=== PATIENT | male | born 1980 | race Asian ===

== ENCOUNTER 2017-10-09 18:32 | Inpatient (IN) | payer MEDICARE, MEDICAID ==
[~2017-10-09] VITALS: Ht 167.6 cm; Wt 73.5 kg
[~2017-10-09 18:32] MED LIST: HEPARIN SODIUM,PORCINE 1,000 UNITS/ML VIAL IVP ONE; RISP3 PO
[2017-10-09 18:59] LABS: BASOPHILS % (AUTO) 1.1 % (0.0-2.0); EOSINOPHILS % (AUTO) 4.5 % (1.0-6.0); HEMATOCRIT 32.7 % (41-53); HEMOGLOBIN 11.2 g/dL (13.5-17.5); LYMPHOCYTES # (AUTO) 2.2 K/uL (1.0-4.8); LYMPHOCYTES % (AUTO) 21.8 % (22.0-44.0); MEAN CORPUSCULAR HEMOGLOBIN 32.1 pg (26.0-34.0); MEAN CORPUSCULAR HGB CONC 34.2 G/dL (31.0-37.0); MEAN CORPUSCULAR VOLUME 94 fL (80-100); MONOCYTES # (AUTO) 1.1 K/uL (0.1-1.0); MONOCYTES % (AUTO) 10.8 % (2.0-9.0); NEUTROPHILS # (AUTO) 6.1 K/uL (1.8-7.7); NEUTROPHILS % (AUTO) 61.8 % (40.0-70.0); PLATELET COUNT (AUTO) 231 K/uL (150-450); RED BLOOD CELL COUNT(AUTO) 3.48 MIL/uL (4.50-5.90); RED CELL DISTRIBUTION WIDTH 16.3 % (11.5-14.5)
[2017-10-09] MEDS ORDERED: QUET300T2 PO (19:02)
[2017-10-09 19:14] LABS: ALBUMIN 2.3 g/dL (3.4-5.0); BILIRUBIN,TOTAL 0.2 mg/dL (0.1-1.0); CALCIUM, TOTAL 7.7 mg/dL (8.8-10.5); CREATININE 14.22 mg/dL (0.60-1.30); TOTAL PROTEIN, SERUM 5.9 g/dL (6.4-8.2)
[2017-10-09 19:30] LABS: POTASSIUM 7.2 mmol/L (3.5-5.1)
[2017-10-09] MEDS ORDERED: NITROGLYCERIN 2% (1 GM=INCH) PACKET TP ONE (19:30)
[2017-10-09] MEDS ORDERED: 0.9% SODIUM CHLORIDE 5 ML NEB SOLUTION NEB ONE (19:43)
[2017-10-09] MEDS ORDERED: INSULIN REGULAR, HUMAN 100 UNITS/ML IVP ONE (19:45)
[2017-10-09] MEDS ORDERED: DEXTROSE 50%-WATER 25 GM/50 ML SYRINGE IVP ONE (19:45)
[2017-10-09] MEDS ORDERED: SODIUM CHLORIDE 0.9% 100 ML ONE (19:45)
[2017-10-09] MEDS ORDERED: LORazepam 2 MG/ML VIAL IVP ONE (19:45)
[2017-10-09] MEDS ORDERED: SODIUM POLYSTYRENE SULFONATE 15 GM/60 ML SUSPENSION BOTTLE PO ONE (19:45)
[2017-10-09] MEDS ORDERED: SODIUM BICARBONATE [ADULT] 8.4% 50 MEQ/50 ML SYRINGE IVP ONE (19:45)
[2017-10-09] MEDS ORDERED: CALCIUM GLUCONATE 100 MG/ML 10 ML IVP ONE (19:45)
[2017-10-09] MEDS ORDERED: ALBUTEROL SULFATE 2.5 MG/0.5 ML NEB SOLUTION NEB ONE (19:45)
[2017-10-09 20:05] LABS: INR 0.9 (0.9-1.1); PROTHROMBIN TIME 9.4 SEC (9.4-11.6)
[2017-10-09] MEDS ORDERED: ACETAMINOPHEN 325 MG TABLET PO PRN (20:15)
[2017-10-09] MEDS ORDERED: ONDANSETRON HCL 4 MG/2 ML VIAL IVP PRN ×2 (20:15→23:00)
[2017-10-09] MEDS ORDERED: 0.9% SODIUM CHLORIDE 10 ML SYRINGE IVP PRN ×2 (20:15→23:00)
[2017-10-09] MEDS ORDERED: NITROGLYCERIN 0.4 MG SUBLINGUAL TABLET #25 SL ONE ×2 (20:41→20:45)
[2017-10-09 21:06] VITALS: BP 157/110
[2017-10-09 21:10] LABS: APPEARANCE,URINE CLEAR (CLEAR); BILIRUBIN,URINE NEGATIVE (NEGATIVE); GLUCOSE, URINE (UA) 100 mg/dL (NEGATIVE); KETONES,URINE NEGATIVE (NEGATIVE); LEUKOCYTE ESTERASE ,URINE NEGATIVE (NEGATIVE); NITRATE,URINE NEGATIVE (NEGATIVE); OCCULT BLOOD,URINE LARGE (NEGATIVE); PH,URINE 7.5 (5.0-8.0); PROTEIN,URINE SEE CONFIRM (NEGATIVE); UROBILINOGEN,URINE 0.2 mg/dL (<=1.0)
[2017-10-09 21:11] LABS: AMPHET/METH SCREEN,URINE POSITIVE (NEGATIVE); BARBITURATE SCREEN, URINE NEGATIVE (NEGATIVE); BENZODIAZEPINES SCREEN,URINE NEGATIVE (NEGATIVE); CANNABINOID SCREEN,URINE NEGATIVE (NEGATIVE); COCAINE SCREEN,URINE NEGATIVE (NEGATIVE); METHADONE SCREEN, URINE NEGATIVE (NEGATIVE); OPIATE SCREEN,URINE NEGATIVE (NEGATIVE); PHENCYCLIDINE SCREEN,URINE NEGATIVE (NEGATIVE)
[2017-10-09] MEDS ORDERED: SODIUM CHLORIDE 0.9% 2,000 ML IV ONE (21:20)
[2017-10-09 21:28] LABS: SULFOSALICYLIC ACID,URINE 4+ (Negative)
[2017-10-09 21:29] LABS: RBC,URINE 26-50 /HPF (0-2)
[2017-10-09 21:30] LABS: BACTERIA,URINE Few /HPF (None Seen); SQUAMOUS EPITHELIAL CELL,UR Few /LPF (None Seen)
[2017-10-09] MEDS ORDERED: ZOLPIDEM TARTRATE 5 MG TABLET PO PRN (23:00)
[2017-10-10] MEDS ORDERED: HEPARIN SODIUM,PORCINE 5,000 UNITS/ML VIAL SQ SCH
[2017-10-10] MEDS: DOCUSATE SODIUM 100 MG CAPSULE PO SCH ×2 (01:07→09:00)
[2017-10-10] MEDS: RisperiDONE 3 MG TABLET PO SCH ×2 (01:08→09:00)
[2017-10-10] MEDS ORDERED: MANNITOL 25%-12.5 GM/50 ML VIAL IVP PRN (01:15)
[2017-10-10] MEDS ORDERED: HEPARIN SODIUM,PORCINE 1,000 UNITS/ML VIAL IVP ONE ×2 (01:15)
[2017-10-10] MEDS: HEPARIN SODIUM,PORCINE 5,000 UNITS/ML VIAL SQ SCH ×2 (02:02→08:00)
[2017-10-10 06:05] VITALS: BP 146/92
[2017-10-10 06:57] VITALS: BP 154/92
[2017-10-10 07:01] LABS: BASOPHILS % (AUTO) 0.9 % (0.0-2.0); EOSINOPHILS % (AUTO) 3.7 % (1.0-6.0); HEMATOCRIT 28.8 % (41-53); HEMOGLOBIN 10.1 g/dL (13.5-17.5); LYMPHOCYTES # (AUTO) 1.5 K/uL (1.0-4.8); MEAN CORPUSCULAR HEMOGLOBIN 32.5 pg (26.0-34.0); MEAN CORPUSCULAR HGB CONC 34.9 G/dL (31.0-37.0); MEAN CORPUSCULAR VOLUME 93 fL (80-100); MONOCYTES # (AUTO) 0.9 K/uL (0.1-1.0); MONOCYTES % (AUTO) 10.6 % (2.0-9.0); NEUTROPHILS # (AUTO) 5.4 K/uL (1.8-7.7); NEUTROPHILS % (AUTO) 66.8 % (40.0-70.0); PLATELET COUNT (AUTO) 201 K/uL (150-450); RED CELL DISTRIBUTION WIDTH 16.1 % (11.5-14.5)
[2017-10-10 07:24] LABS: BILIRUBIN,TOTAL 0.3 mg/dL (0.1-1.0); CALCIUM, TOTAL 7.6 mg/dL (8.8-10.5); CREATININE 7.98 mg/dL (0.60-1.30); MAGNESIUM 1.5 mg/dL (1.80-2.40); POTASSIUM 4.2 mmol/L (3.5-5.1); TOTAL PROTEIN, SERUM 5.3 g/dL (6.4-8.2)
[2017-10-10] MEDS ORDERED: PANTOPRAZOLE SODIUM 40 MG/VIAL IVP SCH (09:00)
[2017-10-10] MEDS ORDERED: QUEtiapine FUMARATE 300 MG TABLET PO SCH (09:00)
== END 2017-10-10 09:50 | disposition left against medical advice (07) | DRG 640 ==
LOC: EMS 18:33 → 5S 20:06
PROVIDERS: ADMIT Internal Medicine; ATTEND Internal Medicine
PROC: 5A1D70Z Performance of Urinary Filtration, Intermittent, Less than 6 Hours Per Day (ICD-10-PCS; principal; 2017-10-09)
DX: E87.5 Hyperkalemia (principal); N18.6 End stage renal disease; N17.9 Acute kidney failure, unspecified; I12.0 Hypertensive chronic kidney disease with stage 5 chronic kidney disease or end stage renal disease; F20.9 Schizophrenia, unspecified; D64.9 Anemia, unspecified; E78.00 Pure hypercholesterolemia, unspecified; E78.5 Hyperlipidemia, unspecified; E87.70 Fluid overload, unspecified; F17.210 Nicotine dependence, cigarettes, uncomplicated; J44.9 Chronic obstructive pulmonary disease, unspecified; K21.9 Gastro-esophageal reflux disease without esophagitis; Z91.19 Patient's noncompliance with other medical treatment and regimen; Z99.2 Dependence on renal dialysis; Z79.899 Other long term (current) drug therapy
CPT/HCPCS: 83735; 86704; 86706; 87081; 87340; 93005; 94640; 96374; 96375; 99291; C9113; J0610; J1644; J1815; J2060; J3490; J7030; J7050

== ENCOUNTER 2017-11-11 17:04 | Inpatient (IN) | payer MEDICARE, MEDICAID ==
[~2017-11-11] VITALS: Ht 167.6 cm; Wt 67.8 kg
[~2017-11-11 17:04] MED LIST changes: -HEPARIN SODIUM,PORCINE 1,000 UNITS/ML VIAL IVP ONE; +QUET300T2 PO
[2017-11-11] MEDS ORDERED: PHOSLOC PO (17:18)
[2017-11-11 18:29] LABS: BASOPHILS % (AUTO) 0.7 % (0.0-2.0); EOSINOPHILS % (AUTO) 2.9 % (1.0-6.0); HEMOGLOBIN 9.6 g/dL (13.5-17.5); LYMPHOCYTES # (AUTO) 1.7 K/uL (1.0-4.8); LYMPHOCYTES % (AUTO) 18.8 % (22.0-44.0); MEAN CORPUSCULAR HEMOGLOBIN 32.7 pg (26.0-34.0); MEAN CORPUSCULAR HGB CONC 34.1 G/dL (31.0-37.0); MEAN CORPUSCULAR VOLUME 96 fL (80-100); MONOCYTES # (AUTO) 1.1 K/uL (0.1-1.0); MONOCYTES % (AUTO) 11.6 % (2.0-9.0); NEUTROPHILS # (AUTO) 6.1 K/uL (1.8-7.7); PLATELET COUNT (AUTO) 387 K/uL (150-450); RED BLOOD CELL COUNT(AUTO) 2.92 MIL/uL (4.50-5.90); RED CELL DISTRIBUTION WIDTH 14.4 % (11.5-14.5)
[2017-11-11 18:41] LABS: PROTHROMBIN TIME 10.6 SEC (9.4-11.6)
[2017-11-11 18:47] LABS: B-TYPE NATRIURETIC PEPTIDE 163 pg/mL (0-100)
[2017-11-11 19:02] LABS: ALANINE AMINOTRANSFERASE 11 U/L (12-78); ALBUMIN 3.7 g/dL (3.4-5.0); ALKALINE PHOSPHATASE 63 U/L (46-116); ANION GAP 16 mmol/L (8-16); ASPARTATE AMINOTRANSFERASE 18 U/L (15-37); BILIRUBIN,TOTAL 0.6 mg/dL (0.1-1.0); CALCIUM, TOTAL 8.6 mg/dL (8.8-10.5); CARBON DIOXIDE 25 mmol/L (22-29); CHLORIDE 97 mmol/L (98-107); CREATINE KINASE MB 4.2 ng/mL (0-5); CREATINE KINASE, TOTAL 486 U/L (39-308); GLUCOSE,RANDOM 84 mg/dL (70-110); POTASSIUM 5.7 mmol/L (3.5-5.1); SODIUM SERUM 138 mmol/L (136-145); TOTAL PROTEIN, SERUM 7.5 g/dL (6.4-8.2)
[2017-11-11 19:14] LABS: CREATININE 20.98 mg/dL (0.60-1.30); GLOMERULAR FILTR. RATE CALC 3 mL/min (>60); UREA NITROGEN, BLOOD 101 mg/dL (7-18)
[2017-11-11] MEDS ORDERED: SODIUM POLYSTYRENE SULFONATE 15 GM/60 ML SUSPENSION BOTTLE PO ONE (19:30)
[2017-11-11] MEDS ORDERED: ALBUTEROL SULFATE 5 MG/ML 20 ML NEB SOLN [BULK] NEB ONE (19:35)
[2017-11-11] MEDS ORDERED: 0.9% SODIUM CHLORIDE 5 ML NEB SOLUTION NEB ONE (19:52)
[2017-11-11] MEDS ORDERED: ACETAMINOPHEN 325 MG TABLET PO PRN ×2 (21:00→22:45)
[2017-11-11] MEDS ORDERED: 0.9% SODIUM CHLORIDE 10 ML SYRINGE IVP PRN (21:00)
[2017-11-11] MEDS ORDERED: ONDANSETRON HCL 4 MG/2 ML VIAL IVP PRN ×2 (21:00→22:45)
[2017-11-11 21:58] VITALS: BP 123/70
[2017-11-11] MEDS ORDERED: ZOLPIDEM TARTRATE 5 MG TABLET PO PRN (22:45)
[2017-11-11] MEDS ORDERED: MORPHINE SULFATE 4 MG/ML SYRINGE IVP PRN (22:45)
[2017-11-11] MEDS ORDERED: MAGNESIUM HYDROXIDE SUSPENSION 30 ML UDCUP PO PRN (22:45)
[2017-11-11] MEDS ORDERED: HYDROCODONE/ACETAMINOPHEN 5-325 MG TABLET PO PRN (22:45)
[2017-11-11] MEDS ORDERED: BISACODYL 10 MG RECTAL RECTAL SUPPOSITORY PR PRN (22:45)
[2017-11-11 23:53] VITALS: BP 132/84
[2017-11-11] MEDS: HEPARIN SODIUM,PORCINE 5,000 UNITS/ML VIAL SQ SCH (23:55)
[2017-11-12] MEDS: RisperiDONE 3 MG TABLET PO SCH ×3 (00:19→20:47)
[2017-11-12 06:08] VITALS: BP 146/81
[2017-11-12 06:26] LABS: BASOPHILS % (AUTO) 1.2 % (0.0-2.0); EOSINOPHILS % (AUTO) 4.8 % (1.0-6.0); HEMATOCRIT 26.7 % (41-53); HEMOGLOBIN 9.2 g/dL (13.5-17.5); LYMPHOCYTES # (AUTO) 2.2 K/uL (1.0-4.8); LYMPHOCYTES % (AUTO) 27.5 % (22.0-44.0); MEAN CORPUSCULAR HEMOGLOBIN 33.1 pg (26.0-34.0); MEAN CORPUSCULAR HGB CONC 34.5 G/dL (31.0-37.0); MEAN CORPUSCULAR VOLUME 96 fL (80-100); MONOCYTES % (AUTO) 12.9 % (2.0-9.0); NEUTROPHILS # (AUTO) 4.2 K/uL (1.8-7.7); NEUTROPHILS % (AUTO) 53.6 % (40.0-70.0); PLATELET COUNT (AUTO) 340 K/uL (150-450); RED BLOOD CELL COUNT(AUTO) 2.78 MIL/uL (4.50-5.90); RED CELL DISTRIBUTION WIDTH 14.4 % (11.5-14.5)
[2017-11-12] MEDS: QUEtiapine FUMARATE 300 MG TABLET PO SCH (06:27)
[2017-11-12 06:52] LABS: ALBUMIN 3.4 g/dL (3.4-5.0); BILIRUBIN,TOTAL 0.4 mg/dL (0.1-1.0); CALCIUM, TOTAL 7.7 mg/dL (8.8-10.5); POTASSIUM 4.2 mmol/L (3.5-5.1); TOTAL PROTEIN, SERUM 7.1 g/dL (6.4-8.2)
[2017-11-12 07:07] LABS: CREATININE 21.09 mg/dL (0.60-1.30)
[2017-11-12 07:35] VITALS: BP 116/91
[2017-11-12] MEDS ORDERED: SODIUM CHLORIDE 0.9% 2,000 ML IV ONE (08:28)
[2017-11-12] MEDS: HEPARIN SODIUM,PORCINE 5,000 UNITS/ML VIAL SQ SCH ×2 (09:53→16:20)
[2017-11-12] MEDS: CALCIUM ACETATE 667 MG CAPSULE PO SCH ×2 (09:53→18:36)
[2017-11-12] MEDS ORDERED: VITAMIN B COMP/VIT C/FOLIC ACID CAPSULE PO SCH (11:45)
[2017-11-12 12:25] VITALS: BP 112/71
[2017-11-12] MEDS ORDERED: SODIUM CHLORIDE 0.9% 1,000 ML IV ONE (13:07)
[2017-11-12] MEDS: PANTOPRAZOLE SODIUM 40 MG DR TABLET PO SCH (13:08)
[2017-11-12] MEDS: DOCUSATE SODIUM 100 MG CAPSULE PO SCH ×2 (13:08→20:47)
[2017-11-12] MEDS: VITAMIN B COMP/VIT C/FOLIC ACID CAPSULE PO SCH (13:08)
[2017-11-12] MEDS: EPOETIN ALFA 10,000 UNITS/ML VIAL SQ SCH (13:09)
[2017-11-12 16:21] VITALS: BP 120/73
[2017-11-12 20:38] VITALS: BP 126/73
[2017-11-12] MEDS ORDERED: HYDROmorphone HCL 2 MG TABLET PO PRN ×2 (22:00)
[2017-11-12] MEDS ORDERED: HYDROCODONE/ACETAMINOPHEN 5-325 MG TABLET PO PRN (22:15)
[2017-11-12] MEDS ORDERED: MORPHINE SULFATE 4 MG/ML SYRINGE IVP PRN (22:15)
[2017-11-13 00:38] VITALS: BP 123/70
[2017-11-13] MEDS: HEPARIN SODIUM,PORCINE 5,000 UNITS/ML VIAL SQ SCH ×3 (01:12→16:03)
[2017-11-13 04:34] VITALS: BP 134/66
[2017-11-13 07:24] LABS: BASOPHILS % (AUTO) 1.1 % (0.0-2.0); EOSINOPHILS % (AUTO) 6.4 % (1.0-6.0); HEMATOCRIT 30.1 % (41-53); HEMOGLOBIN 10.1 g/dL (13.5-17.5); LYMPHOCYTES # (AUTO) 1.3 K/uL (1.0-4.8); LYMPHOCYTES % (AUTO) 19.1 % (22.0-44.0); MEAN CORPUSCULAR HEMOGLOBIN 32.6 pg (26.0-34.0); MEAN CORPUSCULAR HGB CONC 33.4 G/dL (31.0-37.0); MEAN CORPUSCULAR VOLUME 98 fL (80-100); MONOCYTES # (AUTO) 0.8 K/uL (0.1-1.0); MONOCYTES % (AUTO) 12.5 % (2.0-9.0); NEUTROPHILS % (AUTO) 60.9 % (40.0-70.0); PLATELET COUNT (AUTO) 344 K/uL (150-450); RED BLOOD CELL COUNT(AUTO) 3.09 MIL/uL (4.50-5.90); RED CELL DISTRIBUTION WIDTH 14.7 % (11.5-14.5)
[2017-11-13 07:38] LABS: % IRON SATURATION 16.5 % (30-44)
[2017-11-13 07:40] VITALS: BP 140/84
[2017-11-13 07:46] LABS: CALCIUM, TOTAL 8.2 mg/dL (8.8-10.5); CREATININE 15.34 mg/dL (0.60-1.30); MAGNESIUM 2.3 mg/dL (1.80-2.40); POTASSIUM 4.8 mmol/L (3.5-5.1)
[2017-11-13] MEDS: CALCIUM ACETATE 667 MG CAPSULE PO SCH ×2 (08:27→17:41)
[2017-11-13] MEDS: RisperiDONE 3 MG TABLET PO SCH ×2 (08:28→20:41)
[2017-11-13] MEDS: DOCUSATE SODIUM 100 MG CAPSULE PO SCH ×2 (08:29→20:41)
[2017-11-13] MEDS: PANTOPRAZOLE SODIUM 40 MG DR TABLET PO SCH (08:29)
[2017-11-13] MEDS: VITAMIN B COMP/VIT C/FOLIC ACID CAPSULE PO SCH (08:29)
[2017-11-13] MEDS: QUEtiapine FUMARATE 300 MG TABLET PO SCH (08:29)
[2017-11-13 08:31] LABS: PHOSPHORUS 14.3 mg/dL (2.5-4.9)
[2017-11-13 12:16] VITALS: BP 137/94
[2017-11-13] MEDS ORDERED: SODIUM CHLORIDE 0.9% 250 ML IV ONE (12:51)
[2017-11-13] MEDS: SOD FERRIC GLUC COMPLX/SUCROSE 125 MG in SODIUM CHLORIDE 0.9% 100 ML IV SCH (12:53)
[2017-11-13 15:43] VITALS: BP 154/98
[2017-11-13 19:41] VITALS: BP 139/72
[2017-11-14] MEDS: HEPARIN SODIUM,PORCINE 5,000 UNITS/ML VIAL SQ SCH ×3 (00:05→16:00)
[2017-11-14 00:07] VITALS: BP 135/79
[2017-11-14 04:42] VITALS: BP 142/79
[2017-11-14 07:45] VITALS: BP 147/87
[2017-11-14] MEDS: CALCIUM ACETATE 667 MG CAPSULE PO SCH ×2 (08:00→18:00)
[2017-11-14] MEDS: VITAMIN B COMP/VIT C/FOLIC ACID CAPSULE PO SCH (09:00)
[2017-11-14] MEDS: QUEtiapine FUMARATE 300 MG TABLET PO SCH (09:29)
[2017-11-14] MEDS: DOCUSATE SODIUM 100 MG CAPSULE PO SCH ×2 (09:29→20:14)
[2017-11-14] MEDS: RisperiDONE 3 MG TABLET PO SCH ×2 (09:29→20:14)
[2017-11-14] MEDS: PANTOPRAZOLE SODIUM 40 MG DR TABLET PO SCH (09:29)
[2017-11-14 11:05] VITALS: BP 149/96
[2017-11-14] MEDS: SOD FERRIC GLUC COMPLX/SUCROSE 125 MG in SODIUM CHLORIDE 0.9% 100 ML IV SCH (11:18)
[2017-11-14 15:32] VITALS: BP 136/93
[2017-11-14] MEDS ORDERED: SODIUM CHLORIDE 0.9% 2,000 ML IV ONE (15:56)
[2017-11-14] MEDS ORDERED: LIDOCAINE HCL/PF 1% 2 ML VIAL INJ ONE (17:05)
[2017-11-14 20:38] VITALS: BP 139/88
[2017-11-15 00:03] VITALS: BP 135/79
[2017-11-15] MEDS: HEPARIN SODIUM,PORCINE 5,000 UNITS/ML VIAL SQ SCH ×2 (00:19→08:36)
[2017-11-15 05:11] VITALS: BP 130/75
[2017-11-15 07:05] VITALS: BP 140/81
[2017-11-15] MEDS ORDERED: CALCIUM ACETATE 667 MG CAPSULE PO SCH (08:00)
[2017-11-15] MEDS: VITAMIN B COMP/VIT C/FOLIC ACID CAPSULE PO SCH (08:37)
[2017-11-15] MEDS: RisperiDONE 3 MG TABLET PO SCH (08:37)
[2017-11-15] MEDS: PANTOPRAZOLE SODIUM 40 MG DR TABLET PO SCH (08:37)
[2017-11-15] MEDS: DOCUSATE SODIUM 100 MG CAPSULE PO SCH (08:37)
[2017-11-15] MEDS: QUEtiapine FUMARATE 300 MG TABLET PO SCH (08:37)
[2017-11-15] MEDS: EPOETIN ALFA 10,000 UNITS/ML VIAL SQ SCH (08:43)
== END 2017-11-15 11:25 | disposition home or self-care (01) | DRG 91 ==
LOC: EMS 17:08 → 5N 21:13
PROVIDERS: ADMIT Internal Medicine; ATTEND Internal Medicine
PROC: 5A1D70Z Performance of Urinary Filtration, Intermittent, Less than 6 Hours Per Day (ICD-10-PCS; principal; 2017-11-12)
PROC: 5A1D70Z Performance of Urinary Filtration, Intermittent, Less than 6 Hours Per Day (ICD-10-PCS; 2017-11-14)
DX: G92 Toxic encephalopathy (principal); N18.6 End stage renal disease; E87.5 Hyperkalemia; E78.00 Pure hypercholesterolemia, unspecified; E78.5 Hyperlipidemia, unspecified; E83.39 Other disorders of phosphorus metabolism; F15.10 Other stimulant abuse, uncomplicated; F17.210 Nicotine dependence, cigarettes, uncomplicated; T78.8XXA Other adverse effects, not elsewhere classified, initial encounter; X58.XXXA Exposure to other specified factors, initial encounter; D64.9 Anemia, unspecified; F25.9 Schizoaffective disorder, unspecified; J44.9 Chronic obstructive pulmonary disease, unspecified; K21.9 Gastro-esophageal reflux disease without esophagitis; Z91.19 Patient's noncompliance with other medical treatment and regimen; Z91.15 Patient's noncompliance with renal dialysis; Z99.2 Dependence on renal dialysis; Z79.899 Other long term (current) drug therapy; Y92.89 Other specified places as the place of occurrence of the external cause; Z81.3 Family history of other psychoactive substance abuse and dependence; Z82.49 Family history of ischemic heart disease and other diseases of the circulatory system
CPT/HCPCS: 83540; 83550; 83735; 84100; 87081; 87340; 90935; 93005; 94644; 96372; 96374; 99285; G0480; J0885; J1644; J2270; J2916; J3490; J7030; J7050